=== PATIENT | female | born 1940 | race Caucasian/White ===

== ENCOUNTER 2016-12-09 13:37 | Observation (INO) | payer MEDICARE, OTHER ==
--- NOTE | ~2016-12-09 | CR84 ---
[facility] A Service of [facility] RADIOLOGY TEXT RESULTS PATIENT: LIDA BOWIE LOCATION: [facility] : 42 UNIT #: [id number] AGE: [address]: Jose Escobar MD SEX: F ORDER DR: [id number] [place] [address] [place], [place] [address] [id number] I MR#: [id number] Acc #: [id number] NAME: LIDA BOWIE. : 1940 SEX: F STUDY DATE/TIME: 12/09/2016 15:17 UNIT: [facility] ROOM: [facility] STUDY DESCRIPTION: CR ERCP Biliary and Pancr SI Attending Physician: Jose Escobar M.D. Ordering Physician: Jose Escobar M.D. Primary Care Physician: Pura Mendenhall M.D. MEDICAL IMAGING REPORT This report is preliminary unless electronic signature is present EXAM ERCP (interpretation only). HISTORY Biliary stent removal. FINDINGS A total of 4 C-arm images are submitted from the ERCP performed by Dr. Escobar on 12/09/2016. The study is directly compared to the patient's previous imaging of September 30, 2016. The patient has dilatation of the duct with multiple stones. From by Dr. Escobar's note, a sphincterotomy was performed and balloon extraction of the stones performed. Details of the procedure can be found in Dr. Escobar's notes. Total fluoroscopy time for this study is listed at 2 minutes 49 seconds. A total of 4 spot radiographs are obtained for documentation purposes. Dictated by... Dwain Almanza M.D. THIS IS AN ELECTRONICALLY VERIFIED REPORT Dwain Almanza M.D. at 12/12/2016 4:25 PM ARRON/laney TD: 12/10/2016 14:51 JOB #: [id number] MEDICAL IMAGING REPORT COPY
--- NOTE | ~2016-12-09 | OR ---
Unit #: [id number] #: [id number] Patient: LIDA BOWIE N [id number] [address] [address] [id number] I MR#: [id number] NAME: LIDA BOWIE ROOM: 462 Date of Procedure: 12/09/2016 Admission Date: 12/09/2016 Surgeon: Jose Escobar M.D. : 1940 Attending Physician: Jose Escobar M.D. Primary Care Physician: Pura Mendenhall M.D. OPERATIVE REPORT PRIMARY CARE PHYSICIAN Pura Mendenhall M.D. PREOPERATIVE DIAGNOSES The patient has come for elective biliary stent removal. She has copious amounts of biliary stones and sludge removed in the past to endoscopic retrograde cholangiopancreatography. PROCEDURES PERFORMED 1. Endoscopic retrograde cholangiopancreatography and stent removal. 2. Endoscopic retrograde cholangiopancreatography and stone removal. POSTOPERATIVE DIAGNOSES The common bile duct was dilated to about 15 mm and with multitude of filling defects filling the entire common bile duct; however, in contrast to previous examination, no filling defects were seen in the intrahepatic radicles of the bile ducts. After removal of biliary stent, the duct was swept with a 9 to 12 mm followed by a 12 to 15 mm retrieval balloon multiple times with complete clearance of the duct documented by occlusion cholangiogram. RECOMMENDATIONS The patient will be followed up in the office in 3 months' time. SEDATION USED MAC. DESCRIPTION OF PROCEDURE Following detailed explanations of potential risks and complications of an ERCP, namely perforation, bleeding, and complications related to sedation and pancreatitis, the patient was brought to GI lab and laid in the left semiprone position. Sedation using MAC was given. The lateral viewing duodenoscope was advanced through the oral cavity into the esophagus and advanced into the stomach. Pylorus was intubated in the usual fashion. The scope was advanced into deep descending duodenum. Upon shortening the scope, major papillary and ampullary area was visualized en face. Previously placed biliary stent was in normal position. The stent was removed using a polypectomy snare and delivered outside. The patient was then reintubated in this time through the previous sphincterotomy site. A sphincterotome was advanced and a guidewire was advanced the common bile duct easily. Contrast cholangiogram showed multiple filling defects in Unit #: [id number] #: [id number] Patient: JAMIR,LIDA N the mid and distal part of common bile duct. A measurement of the sphincterotomy was made and this was at least 11 to 12 mm in size. We initially used a 9 to 12 mm retrieval balloon, which could easily pass, but was smaller in the size of the duct. Multiple small stones and sludge were delivered. We then used a 12 to 15 mm balloon at 15 mm settings pressures and large amount of biliary sludge and stones were again delivered in the duodenum. Towards end of the procedure, the duct was completely cleared off any residual debris and normal occlusion cholangiogram was demonstrated. The scope and the accessories were then withdrawn. The patient returned to recovery area. She tolerated the procedure without any postprocedure complications. Dictated by... Anand Edwards TD: 12/10/2016 04:27 JOB #: [id number] OPERATIVE REPORT X Jose Escobar MD X PROCEDURE OPERATIVE NOTE
--- NOTE | ~2016-12-09 | DS ---
Unit #: [id number] #: [id number] Patient: LIDA BOWIE N [id number] [address] [address] [id number] I MR#: [id number] NAME: LIDA BOWIE ROOM: 46 Age: 75 Sex: F Admission Date: 12/09/2016 : 1940 Discharge Date: 12/11/2016 Attending Physician: Jose Escobar M.D. Primary Care Physician: Pura Mendenhall M.D. DISCHARGE SUMMARY FINAL DIAGNOSIS Post endoscopic retrograde cholangiopancreatography upper abdominal pain, resolved spontaneously. DISCHARGE MEDICATIONS 1. Lisinopril (Zestril) 10 mg p.o. daily. 2. Hydrocodone/acetaminophen 5/325 p.r.n. for pain. 3. Pravachol 20 mg p.o. daily. 4. MiraLAX 17 gram p.o. daily as needed for constipation. 5. Metoprolol 25 mg p.o. b.i.d. 6. Flonase spray as needed for allergies. 7. Omeprazole 40 mg p.o. daily. 8. Triamterene/Hydrochlorothiazide 75/50 mg p.o. daily. 9. Calcium 600 mg p.o. daily. 10. Vitamin D tablet 1 tablet p.o. b.i.d. NOTE: Discharge medications included all the preadmission medications, and no changes were made in the discharge medications. FOLLOWUP INSTRUCTIONS Patient to follow up in the office in 6-8 weeks. She will have to call our office and make a followup appointment. NARRATIVE The patient underwent outpatient ERCP with removal of biliary stent and residual common bile duct stones. Postoperatively her abdomen was benign, but she continued to complain of epigastric pain, which she has done on previous couple of occasions, as well. She was, therefore, admitted as an outpatient in observation for 1 1/2 days. The pain resolved spontaneously, and the patient was feeling pain free and tolerating regular diet before being discharged. Dictated by... Anand Edwards TD: 12/12/2016 12:37 JOB #: [id number] Unit #: [id number] #: [id number] Patient: SAMPLE,ADA N DISCHARGE SUMMARY X Jose Escobar MD X DISCHARGE SUMMARY
--- NOTE | ~2016-12-09 | HP ---
Unit #: [id number] #: [id number] Patient: LIDA MATHEW N [id number] [address] [address] [id number] Mikaela MR#: [id number] NAME: LIDA MATHEW. ROOM: 462 Age: 75 Sex: F Admission Date: 12/09/2016 : 1940 Attending Physician: Jose Escobar M.D. Primary Care Physician: Pura Mendenhall M.D. HISTORY AND PHYSICAL PREOP DIAGNOSIS Epigastric pain following ERCP requiring biliary stent removal and removal of residual common bile duct stones. HISTORY Ms. Mathew underwent an uncomplicated ERCP where the biliary stent was removed and the common bile duct was completely clear of all residual debris and stones with a procedure that lasted for about 45 minutes. A normal occlusion cholangiogram was demonstrated then. The patient, however, post procedure, mentioned some upper abdominal pain and was uncomfortable going home with the pain and I felt it would be easier to observe her for 12 to 24 hours in the hospital on an outpatient observation setup. She denies any history of vomiting. There is no overt GI bleed. PAST MEDICAL HISTORY Significant for history of hypertension as well as mild asthma and bronchitis. MEDICATIONS Her medications include: 1. Flonase. 2. Metoprolol. 3. Pravachol. 4. Zestril. 5. Omeprazole. 6. Zofran. 7. Hydrochlorothiazide. 8. Triamterene. ALLERGIES She is allergic to penicillin, sulfonamides, codeine, oxycodone, levofloxacin, atorvastatin. SOCIAL HISTORY She does not smoke or drink alcohol. FAMILY HISTORY No colon or pancreatic cancer or liver disease. REVIEW OF SYSTEMS A detailed review of organ systems does not reveal any recent weight loss. No history of fevers, chills, rigors. No history of headache, seizures, chest pain or syncope. No history of cough, expectoration or hemoptysis. Unit #: [id number] #: [id number] Patient: LIDA MATHEW No history of dysuria, hematuria or pyuria. No history of focal seizures or extremity weakness. PHYSICAL EXAMINATION GENERAL APPEARANCE: She is alert, oriented, appears to be in pain in the upper abdomen. VITAL SIGNS: Temperature 98.4, pulse 74 per minute and regular, respirations 20, blood pressure 107/62. She weighs 153 pounds which is close to her baseline weight. She has no pallor, icterus, lymphadenopathy or peripheral edema. CARDIOVASCULAR EXAMINATION: Normal heart sounds. No murmurs. LUNGS: Auscultation of the lungs reveal normal breath sounds. Good air entry. ABDOMEN: Soft, minimal tenderness in the upper abdomen. Liver and spleen are not palpable. Bowel sounds normal. DIAGNOSTIC STUDIES LABORATORY: Lab evaluation reveals normal CBC and serum chemistry. The patient is being admitted for outpatient observation for pain relief and control and most likely will be discharged home tomorrow morning. Dictated by Anand Edwards TD: 12/10/2016 14:42 JOB #: [id number] HISTORY AND PHYSICAL X Jose Escobar MD X HISTORY AND PHYSICAL
[~2016-12-09 13:37] MED LIST: ACULAR10 ML OS; ALBUTEROL17 GM INH; ASPIRIN PO; BLOOD PRESSURE PILL; CALCIUM + D 6001 TA1 PO; CALCIUM + VITAM1 TAB PO; CALCIUM MAGNESI1 TA1 PO; CARAFATE1 G PO; CELEBREX PO; CHOLESTEROL PILL; COLCHICINE PO; FISH OIL 1,0001 CAP PO; FLONASE 0.05% N16 G1; GARLIC1 CAP PO; HYDROCODON-ACE1 EAC7 PO; ILOTYCIN1 GM OS; LISINOPRIL20 MG PO; MAG-OXIDE400 MG PO; MAXZIDE 75-501 EACH PO; MAXZIDE 75/50 T1 TAB PO; METOPROLOL TAR25 MG PO; METOPROLOL TART25 MG PO; MIRALAX17 GM PO; NEURONTIN100 MG PO; NORCO 10-325 TA1 TAB PO; OMEPRAZOLE40 M1 PO; PRAVACHOL PO; PRAVACHOL20 MG PO; PRAVASTATIN SOD20 MG PO; PREVACID PO; PRILOSEC PO; SWEEN CREAM57 GM TOP; TOPROL XL PO; TRAMADOL-APAP1 EACH PO; TRIAMTERENE W/H1 CAP PO; TRIAMTERENE-HC1 EACH PO; TRIAMTERENE/HCT1 TA3 PO; VICODIN 5/500 T1 TAB PO; VITAMIN D 4001 UDTAB PO; WATER PILL; ZESTRIL10 M1 PO
[2016-12-09 16:40] LABS: BASOPHIL% 0.8 % (0-2.5); EOSINOPHIL# 0.1 X10e3 (0-0.7); EOSINOPHIL% 1.7 % (0.0-7.0); HEMATOCRIT 36.9 % (35.0-45.0); HEMOGLOBIN 12.2 gm/dL (12.0-16.0); LYMPHOCYTE# 2.3 X10e3 (1.0-3.5); LYMPHOCYTE% 38.4 % (17.0-45.0); MEAN CELL VOLUME 90.3 FL (83-96); MEAN CORPUSCULAR HEMOGLOBIN 29.9 PG (28-34); MEAN CORPUSCULAR HGB CONC 33.1 g/dL (30-36); MEAN PLATELET VOLUME 9.2 FL (6.5-11.5); MONOCYTE# 0.6 X10e3 (0-1.0); MONOCYTE% 9.4 % (3.0-12.0); NEUTROPHIL% 49.7 % (40-75); PLATELET COUNT 150 X10e3 (140-420); RED BLOOD COUNT 4.08 X10e (3.90-5.30); RED CELL DISTRIBUTION WIDTH 13.5 % (11.0-15.5); WHITE BLOOD COUNT 6.1 X10e3 (4.0-10.5)
[2016-12-09 16:45] LABS: DIFF IND NO
[2016-12-09 17:03] LABS: ALBUMIN SERUM 3.6 g/dL (3.5-5.0); ALKALINE PHOSPHATASE 111 U/L (32-92); ALT (SGPT) 19 U/L (10-40); AMYLASE 33 U/L (0-46); AST (SGOT) 27 U/L (10-42); BILIRUBIN,TOTAL 0.5 mg/dL (0.2-2.0); BLOOD UREA NITROGEN 18 mg/dL (9-23); CALCIUM SERUM 9.1 mg/dL (8.4-10.2); CARBON DIOXIDE 26 mmol/L (22-31); CHLORIDE 108 mmol/L (100-111); CREATININE SERUM 0.8 mg/dL (0.6-1.4); GLOM FILT RATE Estimated ABOVE60 mL/min (>60); GLUCOSE FASTING 104 mg/dL (70-110); LIPASE 67 U/L (22-51); POTASSIUM 3.7 mmol/L (3.5-5.1); SODIUM 137 mmol/L (135-145)
[2016-12-10 03:19] LABS: BASOPHIL% 0.9 % (0-2.5); EOSINOPHIL# 0.1 X10e3 (0-0.7); EOSINOPHIL% 2.5 % (0.0-7.0); HEMATOCRIT 34.3 % (35.0-45.0); HEMOGLOBIN 11.6 gm/dL (12.0-16.0); LYMPHOCYTE# 2.4 X10e3 (1.0-3.5); LYMPHOCYTE% 49.1 % (17.0-45.0); MEAN CELL VOLUME 89.3 FL (83-96); MEAN CORPUSCULAR HEMOGLOBIN 30.2 PG (28-34); MEAN CORPUSCULAR HGB CONC 33.8 g/dL (30-36); MEAN PLATELET VOLUME 9.1 FL (6.5-11.5); MONOCYTE# 0.4 X10e3 (0-1.0); NEUTROPHIL# 1.9 X10e3 (1.5-7.1); NEUTROPHIL% 38.5 % (40-75); PLATELET COUNT 145 X10e3 (140-420); RED BLOOD COUNT 3.84 X10e (3.90-5.30); RED CELL DISTRIBUTION WIDTH 13.7 % (11.0-15.5); WHITE BLOOD COUNT 4.9 X10e3 (4.0-10.5)
[2016-12-10 03:28] LABS: DIFF IND NO
[2016-12-10 03:40] LABS: ALBUMIN SERUM 3.3 g/dL (3.5-5.0); ALKALINE PHOSPHATASE 103 U/L (32-92); ALT (SGPT) 20 U/L (10-40); AMYLASE 25 U/L (0-46); AST (SGOT) 30 U/L (10-42); BILIRUBIN,TOTAL 0.5 mg/dL (0.2-2.0); BLOOD UREA NITROGEN 14 mg/dL (9-23); CARBON DIOXIDE 27 mmol/L (22-31); CHLORIDE 107 mmol/L (100-111); CREATININE SERUM 0.7 mg/dL (0.6-1.4); GLOM FILT RATE Estimated ABOVE60 mL/min (>60); GLUCOSE FASTING 102 mg/dL (70-110); POTASSIUM 3.6 mmol/L (3.5-5.1); PROTEIN TOTAL SERUM 6.7 g/dL (6.0-8.3); SODIUM 140 mmol/L (135-145)
[2016-12-11 04:07] LABS: HEMATOCRIT 34.1 % (35.0-45.0); HEMOGLOBIN 11.3 gm/dL (12.0-16.0); MEAN CELL VOLUME 90.6 FL (83-96); MEAN CORPUSCULAR HEMOGLOBIN 30.1 PG (28-34); MEAN CORPUSCULAR HGB CONC 33.2 g/dL (30-36); RED BLOOD COUNT 3.76 X10e (3.90-5.30); RED CELL DISTRIBUTION WIDTH 13.4 % (11.0-15.5); WHITE BLOOD COUNT 8.4 X10e3 (4.0-10.5)
[2016-12-11 04:14] LABS: ALBUMIN SERUM 3.2 g/dL (3.5-5.0); ALKALINE PHOSPHATASE 98 U/L (32-92); ALT (SGPT) 18 U/L (10-40); AMYLASE 24 U/L (0-46); AST (SGOT) 26 U/L (10-42); BILIRUBIN,TOTAL 0.7 mg/dL (0.2-2.0); BLOOD UREA NITROGEN 11 mg/dL (9-23); BUN/CREATININE RATIO 13.75; CALCIUM SERUM 8.9 mg/dL (8.4-10.2); CARBON DIOXIDE 24 mmol/L (22-31); CHLORIDE 108 mmol/L (100-111); CREATININE SERUM 0.8 mg/dL (0.6-1.4); GLOM FILT RATE Estimated ABOVE60 mL/min (>60); GLUCOSE FASTING 104 mg/dL (70-110); LIPASE 30 U/L (22-51); POTASSIUM 3.9 mmol/L (3.5-5.1); PROTEIN TOTAL SERUM 6.6 g/dL (6.0-8.3); SODIUM 140 mmol/L (135-145)
== END 2016-12-11 13:37 | disposition home or self-care (01) ==
LOC: COPS 13:37 → C4C 18:29
PROVIDERS: Internal Medicine Gastroenterology
DX: K80.50 Calculus of bile duct without cholangitis or cholecystitis without obstruction (principal); Z46.89 Encounter for fitting and adjustment of other specified devices; I10 Essential (primary) hypertension; J40 Bronchitis, not specified as acute or chronic; Z87.891 Personal history of nicotine dependence; Z88.0 Allergy status to penicillin; Z88.5 Allergy status to narcotic agent; Z88.2 Allergy status to sulfonamides
CPT/HCPCS: 74330; 80053; 82150; 83690; 84443; 85025; 85027; 96374; 96375; 96376; G0378; J1170; J1610; J2250; J2405; J3010

== ENCOUNTER → 2017-05-01 | Outpatient (CLI) | payer MEDICARE, OTHER ==
[~2017-05-01] MED LIST changes: +LISINOPRIL10 MG PO; +LOPRESSOR PO; +MULTI-VITAMIN1 EAC1 PO; +PROAIR HFA8.5 GM INH; +ZYLOPRIM100 MG PO
--- NOTE | ~2017-05-01 | MY29 ---
[facility] A Service of [facility] RADIOLOGY TEXT RESULTS PATIENT: LIDA BOWIE LOCATION: [facility] : 42 UNIT #: [id number] AGE: [address]: COLE WOODSON MD SEX: F ORDER DR: [id number] [facility] [address] [place], [place] [address] [id number] O MR#: [id number] Acc #: [id number] NAME: LIDA BOWIE. : 1940 SEX: F STUDY DATE/TIME: 05/01/2017 12:02 UNIT: [facility] ROOM: STUDY DESCRIPTION: [facility] SCREENING W/ CAD BILAT Attending Physician: Cole Woodson M.D. Referring Physician: Cole Woodson M.D. Ordering Physician: Cole Woodson M.D. Primary Care Physician: Cole Woodson M.D. MEDICAL IMAGING REPORT This report is preliminary unless electronic signature is present EXAM Digital screening mammogram with CAD INDICATIONS Routine screening PROCEDURE Bilateral CC and MLO views obtained on a digital mammography unit; FDA-approved CAD device utilized. COMPARISON 06/19/2015 FINDINGS Scattered fibroglandular density. No dominant mass or suspicious calcification. IMPRESSION Negative screening mammogram; screen interval in 1 year suggested. Patient's over the age of 40 are entered into a reminder system with target due date for the next mammogram. A result letter will be sent to the patient. BIRADS: 1 Negative Dictated by... Maicol Mckee M.D. THIS IS AN ELECTRONICALLY VERIFIED REPORT Maicol Mckee M.D. at 05/02/2017 7:12 AM EED/to [facility] A Service [facility] RADIOLOGY TEXT RESULTS PATIENT: LIDA BOWIE LOCATION: [facility] : 42 UNIT #: [id number] AGE: [address]: COLE WOODSON MD SEX: F ORDER DR: TD: 05/01/2017 20:17 JOB #: [id number] MEDICAL IMAGING REPORT Page 1 of 1 COPY
== END | disposition home or self-care (01) ==
LOC: CWCC 11:30
DX: Z12.31 Encounter for screening mammogram for malignant neoplasm of breast (principal)
CPT/HCPCS: G0202

== ENCOUNTER → 2017-07-11 | Outpatient (CLI) | payer MEDICARE, OTHER ==
[~2017-07-11] MED LIST changes: +REQUIP0.25 MG PO
--- NOTE | ~2017-07-11 | CT2 ---
[facility] A Service of [facility] RADIOLOGY TEXT RESULTS PATIENT: LIDA BOWIE LOCATION: [facility] : 42 UNIT #: [id number] AGE: [address]: John Choudhary MD SEX: F ORDER DR: [id number] [place] [address] [facility] [place], [place] [address] [id number] O MR#: [id number] Acc #: [id number] NAME: LIDA BOWIE. : 1940 SEX: F STUDY DATE/TIME: 07/11/2017 8:27 UNIT: [facility] ROOM: STUDY DESCRIPTION: CT Abd and Pelv W Cont Attending Physician: John Choudhary M.D. Referring Physician: John Choudhary M.D. Ordering Physician: John Choudhary M.D. Primary Care Physician: Pura Mendenhall M.D. MEDICAL IMAGING REPORT This report is preliminary unless electronic signature is present EXAM CT abdomen and pelvis with contrast INDICATION Upper to mid abdominal pain, bloating and cramping with diarrhea for the past 2 months. Previous history of pancreatitis. PROCEDURE Contrast-enhanced CT of the abdomen and pelvis. This CT exam was performed with one or more of the following radiation dose reduction techniques: automatic exposure control, adjustment of mA and/or kV according to patient size, and iterative reconstruction. COMPARISON 08/12/2016 FINDINGS ABDOMEN WITH CONTRAST: Scattered calcified pulmonary granuloma in the lung bases. Liver measures 18.7 cm in length. There is pneumobilia. The common duct measures up to 1.6 cm. There is a small amount of stone debris dependently in the distal common duct but significantly improved compared with the previous study. 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 The pancreatic duct is nondilated. No evidence for acute pancreatitis. The spleen, kidneys, adrenal glands are unremarkable. Bowel loops are nondilated. There are scattered uncomplicated colonic diverticula. PELVIS WITH CONTRAST: Previous hysterectomy. No pelvic mass or fluid. [facility] A Service of [facility] RADIOLOGY TEXT RESULTS PATIENT: LIDA BOWIE LOCATION: [facility] : 42 UNIT #: [id number] AGE: [address]: John Choudhary MD SEX: F ORDER DR: No aggressive appearing bone lesion. IMPRESSION 1. Persistent prominence of the common duct with small stone debris in the distal common duct but significantly improved compared with 08/12/2016. 2. 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 3. Pancreatic duct nondilated. No evidence for acute pancreatitis. 4. Other findings are detailed above. Dictated by... Maicol Mckee M.D. THIS IS AN ELECTRONICALLY VERIFIED REPORT Maicol Mckee M.D. at 07/12/2017 8:05 AM Phyllis TD: 07/11/2017 14:52 JOB #: [id number] MEDICAL IMAGING REPORT Page 1 of 1 COPY
[2017-07-11 10:01] LABS: POC - CREATININE 0.82 mg/dL (0.44-1.03); POC - GFR >60.0 mL/min (>60)
== END | disposition home or self-care (01) ==
LOC: CCAT 07:08
PROVIDERS: Surgery
DX: R10.13 Epigastric pain (principal); K80.50 Calculus of bile duct without cholangitis or cholecystitis without obstruction; K57.10 Diverticulosis of small intestine without perforation or abscess without bleeding
CPT/HCPCS: 74177; 82565; Q9967